=== PATIENT | female | born 1970 | race Caucasian/White ===

== ENCOUNTER → 2017-09-30 | Outpatient (CLI) | payer BC ==
--- NOTE | 2017-09-30 20:05 | Diagnostic Imaging Report ---
INDICATION: Routine screening. COMPARISON: No mammograms are available for comparison. This is a baseline study. EXAMINATION: Bilateral digital screening mammogram with CAD. 3D tomographic images were obtained and reviewed. The current study was also evaluated with a Computer Aided Detection (CAD) system. IMPRESSION: Scattered fibroglandular densities are identified, bilaterally. No mass or malignant appearing microcalcifications are seen. The axillae are unremarkable. IMPRESSION: BI-RADS category 2 No mammographic features suspicious for malignancy are identified. ACR BI-RADS Category 2: Benign findings. Result letter will be mailed to the patient. Note: At least 10% of breast cancer is not imaged by mammography. Dictated by: Dictated on workstation # [id number]
--- NOTE | 2017-10-01 08:35 | Diagnostic Imaging Report ---
EXAMINATION: Ultrasound pelvis DATE: 09/30/2017. INDICATION: 47-year-old female, postmenopausal bleeding. COMPARISON: None. TECHNIQUE: A sonogram of the pelvis was performed utilizing transabdominal and endovaginal approaches assessing banuelos-scale appearance and color Doppler flow. FINDINGS: The uterus measures 7.1 x 4.4 x 3.6 cm. No focal uterine masses are seen. The endometrium measures 0.9 cm in diameter. The right and left ovary are not able to be visualized relating to overlying bowel gas. No adnexal lesion is seen. No free pelvic fluid is demonstrated. IMPRESSION: 1. Endometrial thickness of 9 mm which would be abnormal in a postmenopausal female. Further gynecologic workup recommended. 2. The ovaries are not able to be visualized. 3. No free pelvic fluid. Dictated by: Dictated on workstation # [id number]
== END ==
LOC: RAD 14:47
PROVIDERS: ATTEND Family Medicine
DX: Z12.31 Encounter for screening mammogram for malignant neoplasm of breast (principal); N95.0 Postmenopausal bleeding
CPT/HCPCS: 76830; 76856; 77067

== ENCOUNTER → 2020-01-06 | Outpatient (CLI) | payer BC ==
--- NOTE | 2020-01-09 08:42 | Diagnostic Imaging Report ---
Digital mammogram. Bilateral screening This study was compared to the prior exam of 09/30/2017. At this time there are no current complaints The current study was also evaluated with a Computer Aided Detection (CAD) system. FINDINGS: There are scattered fibroglandular densities in both breasts which could obscure a lesion. Overall, there does not appear to have been any significant change when compared to the prior exam. No primary or secondary sign of malignancy is noted. IMPRESSION: There is no radiographic evidence for malignancy. ACR BI-RADS Category 1: Negative. Result letter will be mailed to the patient. Note: At least 10% of breast cancer is not imaged by mammography. Dictated by: Dictated on workstation # [id number]
== END ==
LOC: RAD 07:30
PROVIDERS: ATTEND Family Medicine
DX: Z12.31 Encounter for screening mammogram for malignant neoplasm of breast (principal)
CPT/HCPCS: 77063; 77067

== ENCOUNTER 2020-02-23 05:35 | Outpatient (RCR) | payer BC ==
[~2020-02-23] VITALS: Ht 165 cm; Wt 82.7 kg
== END 2020-02-24 10:21 | disposition home or self-care (01) ==
LOC: PREOP 05:35
PROVIDERS: ATTEND Surgery
DX: Z01.812 Encounter for preprocedural laboratory examination (principal); Z12.11 Encounter for screening for malignant neoplasm of colon; Z20.828 Contact with and (suspected) exposure to other viral communicable diseases
CPT/HCPCS: 87635

== ENCOUNTER 2020-02-27 07:41 | Day surgery (SDC) | payer BC ==
[2020-02-27] VITALS (8 sets, daily range): BP systolic 114–148; BP diastolic 76–94
[~2020-02-27] VITALS: Ht 165.1 cm; Wt 81.6 kg
[2020-02-27] MEDS ORDERED: LACTATED RINGERS 1,000 ML IV STA (07:56)
[2020-02-27] MEDS ORDERED: PROPOFOL INJECTION 0 ML IV ONE (08:02)
[2020-02-27] MEDS ORDERED: MIDAZOLAM 2 MG/2 ML (VERSED) VIAL ONE (08:03)
[2020-02-27] MEDS ORDERED: LACTATED RINGERS 1,000 ML IV ONE (08:05)
[2020-02-27] MEDS ORDERED: PROPOFOL INJECTION 50 ML IV ONE (08:57)
--- NOTE | 2020-02-27 09:15 | Progress Note-Post Operative ---
Post-Operative Progess Note Surgeon (s)/Sql Database Developer (s) Surgeon STEVEN MENDEZ DO Sql Database Developer: ANU Lock Pre-Operative Diagnosis Screening colonoscopy Post-Operative Diagnosis Polyps diverticulosis hemorrhoids Procedure & Operative Findings Date of Procedure 02/27/20 Procedure Performed/Findings Colon with snare Colon with hot bx Anesthesia Type IV sedation by IRON MINER BLASTING Estimated Blood Loss Estimated blood loss (mL): scant Specimens/Packing Specimens Removed transverse colon polyp rectal polyp x 2 STEVEN MENDEZ DO Feb 27, 2020 09:15
--- NOTE | 2020-02-27 09:16 | Endoscopy Discharge Instruct ---
Endo Procedure/Findings Findings 1.: Polyp 2.: Diverticulosis 3.: Internal Hemorrhoids Discharge Instructions - Activity: You might feel a little sleepy until tomorrow. This is due to the medicine you received to relax you. Until tomorrow, you should: NOT drive a car, operate machinery or power tools. NOT drink any alcoholic beverages. NOT make any important decisions or sign importortant papers. Do not return to work until tomorrow, unless otherwise instructed. Resume previous activities tomorrow. Diet: Start by taking liquids. If you tolerate liquids, advance to solid food. 1.: Colonoscopy in 1 year Notify Physician - If you experience excessive bleeding, unusual abdominal pain, fever, or chest pain, contact your doctor immediately. STEVEN MENDEZ DO Feb 27, 2020 09:16
--- NOTE | 2020-02-27 10:27 | Anesthesia-General Post-Op ---
MAC Patient Condition Mental Status/LOC: Same as Preop Cardiovascular: Satisfactory Nausea/Vomiting: Absent Respiratory: Satisfactory Pain: Controlled Complications: Absent Post Op Complications Complications None Follow Up Care/Instructions Patient Instructions None needed. Anesthesiology Discharge Order Discharge Order Patient is doing well, no complaints, stable vital signs, no apparent adverse anesthesia problems. No complications reported per nursing. SWETA KEITH CRNA Feb 27, 2020 10:27
--- NOTE | 2020-02-27 23:41 | OPERATIVE REPORT ---
DATE OF SERVICE: 02/27/2020 PREOPERATIVE DIAGNOSIS: Screening colonoscopy. POSTOPERATIVE DIAGNOSES: 1. Colon polyps. 2. Diverticula. 3. Internal hemorrhoids. PROCEDURE: 1. Colonoscopy with snare polypectomy. 2. Colonoscopy with hot biopsy. SURGEON: Anam Green DO ACADEMIC SERVICES COORDINATOR: Vitaly Rico, MS3 ANESTHESIA: IV sedation by the TANK TRUCK ENGINE MECHANIC. SPECIMEN: One large polyp in the transverse colon and 2 rectal polyps. BLOOD LOSS: Scant. FLUIDS: Per anesthesia. POSTOPERATIVE CONDITION: Stable. INDICATION FOR PROCEDURE: The patient is a 49-year-old female who has needed a screening colonoscopy at age 49. FINDINGS: The patient had a large pedunculated polyp in the transverse colon and she had a couple of flat polyps in the rectum. She also noted to have diverticula and internal hemorrhoids. PROCEDURE NOTE: After informed consent was obtained, the patient was brought to the endoscopy suite, placed in bed in left lateral decubitus position. She was administered IV sedation by the TANK TRUCK ENGINE MECHANIC who then monitored her vitals the entire time, heart rate, blood pressure and pulse ox. Scope was inserted. On the way in, noted diverticula, took a picture and then in the transverse colon, saw a large pedunculated polyp, able to get a snare around this to remove the whole polyp and then suctioned this up to be sent to pathology. Continued up to the cecum about 150 cm in, able to get to the cecum, took a picture of appendiceal orifice, noted the ileocecal valve and then slowly withdrew the scope insufflating the circumferential qureshi looking the cecum, up the ascending colon to the hepatic flexure, then down the transverse colon, splenic flexure, into the descending colon down to the sigmoid and finally into the rectum. In the rectum, saw some flat polyps, I elected to do hot biopsy of these to remove them and then retroflexed in the rectal vault, saw some internal hemorrhoids, took a picture of this and then removed the scope. The patient tolerated the procedure. She was recovered in endoscopy suite. Job ID: [id number] DocumentID: [id number] Dictated Date: 02/27/2020 14:07:22 Business Analytics Intern Date: 02/27/2020 23:40:44 Dictated By: ANAM GREEN DO
== END 2020-02-27 10:00 | disposition home or self-care (01) ==
LOC: ENDO 07:41
PROVIDERS: ATTEND Surgery
DX: Z12.11 Encounter for screening for malignant neoplasm of colon (principal); K63.5 Polyp of colon; K57.30 Diverticulosis of large intestine without perforation or abscess without bleeding; K64.8 Other hemorrhoids; J45.909 Unspecified asthma, uncomplicated; E66.9 Obesity, unspecified; Z68.29 Body mass index [BMI] 29.0-29.9, adult; Z79.899 Other long term (current) drug therapy; Z88.8 Allergy status to other drugs, medicaments and biological substances; Z83.3 Family history of diabetes mellitus; Z82.49 Family history of ischemic heart disease and other diseases of the circulatory system
CPT/HCPCS: 88305

== ENCOUNTER 2020-11-16 09:39 | Outpatient (CLI) | payer SELFPAY ==
[~2020-11-16] VITALS: Ht 165 cm; Wt 83.9 kg
[2020-11-16 09:35] VITALS: BP 123/79
[2020-11-16] MEDS ORDERED: EPINEPHrine INJECTION 1 MG/ML AMP IM PRN (09:45)
[2020-11-16] MEDS ORDERED: CASIRIVIMAB/IMDEVIMAB 1,200 MG in NS (IVPB) 250 ML IV ONE (09:45)
[2020-11-16] MEDS ORDERED: diphenhydrAMINE 50 MG/ML INJ (BENADRYL) IV PRN (09:45)
[2020-11-16 10:45] VITALS: BP 119/79
== END 2020-11-16 12:00 | disposition home or self-care (01) ==
LOC: INFUSION 09:39
PROVIDERS: ATTEND Nurse Practitioner Family
DX: Z23 Encounter for immunization (principal); U07.1 COVID-19